=== PATIENT | male | born 1960 | race Caucasian/White ===

== ENCOUNTER 2019-12-06 08:53 | Outpatient (CLI) | payer BC ==
--- NOTE | 2019-12-06 10:27 | RAD ---
EXAM: XR Lumbar Spine Min 4 View PROVIDED CLINICAL HISTORY: Chronic low back pain. COMPARISON: 07/04/2019 obtained from [facility] clinic FINDINGS: Scattered osteophytes are seen involving the lumbar spine. The vertebral body heights and interverteb ral disc spaces are within normal limits. No fracture or subluxation is seen. No abnormal translation of motion is present between the flexion and extension views. Mild facet degenerative nile nges are seen in the lower lumbar spine. Vascular calcifications are seen in the abdominal aorta and in the iliac arteries. A linear radio opaque density overlies the right upper pelvis. This was al so present on prior exam and is difficult to further localize on this exam. IMPRESSION: Stable mild degenerative changes lumbar spine. No fracture or subluxation is seen.
== END 2019-12-06 08:54 | disposition home or self-care (01) ==
LOC: MADRAD 08:53
PROVIDERS: ATTEND Neurological Surgery
DX: M47.26 Other spondylosis with radiculopathy, lumbar region (principal)
CPT/HCPCS: 72110